=== PATIENT | female | born 2000 | race Two or more races ===

== ENCOUNTER 2023-09-12 23:36 | Emergency (ER) | payer SELFPAY ==
[~2023-09-12] VITALS: Ht 160 cm; Wt 65.0 kg
[2023-09-12 23:45] VITALS: BP 118/79; RESP 20; O2SAT 94
[2023-09-12 23:47] VITALS: PULSE 100
[2023-09-13 00:25] LABS: Urine Bacteria FEW /hpf (None Seen); Urine Blood Negative /uL (Negative); Urine Clarity Clear (Clear); Urine Protein, UAD Negative (Negative); Urine Specific Gravity 1.002 (1.001-1.035); Urine Urobilinogen Normal (Negative); Urine WBC 1 /hpf (0 - 5); Urine pH 6.5 (5.0-8.0)
[2023-09-13 00:35] LABS: Amphetamine Screen, Urine Neg (NEGATIVE); Barbiturate Scree,Urine Neg (NEGATIVE); Benzodiazephine Screen, Urine Neg (NEGATIVE); Cannabinoid Screen, Urine Neg (NEGATIVE); Cocaine Screen, Urine Neg (NEGATIVE); Opiate Scree,Urine Neg (NEGATIVE); Phencyclidine Screen, Urine Neg (NEGATIVE)
[2023-09-13 00:36] LABS: Urine Color Straw (Yellow)
[2023-09-13 00:36] LABS: Basophils # (auto) 0 10 ^3/uL (0-0.2); Basophils % (auto) 0.4 % (0.0-2.0); Eosinophils # (auto) 0 10 ^3/uL (0-0.8); Eosinophils % (auto) 0.5 % (0.0-7.0); Hematocrit 45.3 % (36.0-46.0); Hemoglobin 15.3 g/dL (12.2-16.2); Lymphocytes % (auto) 27.8 % (10.0-50.0); Mean Corpuscular Hemoglobin 29.9 pg (28.0-32.0); Mean Corpuscular Hgb Conc. 33.9 g/dL (32.0-36.0); Mean Corpuscular Volume 88.3 fL (80.0-100.0); Monocytes # (auto) 0.4 10 ^3/uL (0-1.3); Monocytes % (auto) 5.6 % (0.0-12.0); Neutrophils # (auto) 4.6 10 ^3/uL (1.6-8.6); Neutrophils % (auto) 65.7 % (37.0-80.0); Nucleated Red Blood Cells % 0.2 %; Red Blood Cells 5.12 10^6/uL (4.0-5.20); Red Cell Distribution Width 12.3 % (11.8-14.3); White Blood Cell 7.1 10^3/uL (4.4-10.8)
[2023-09-13 00:48] LABS: Alanine Aminotransferase 23 U/L (7-40); Albumin 5.3 g/dL (3.2-4.8); Alkaline Phosphatase 102 U/L (46-116); Anion Gap 12 (5-15); Aspartate Aminotransferase 16 U/L (13-40); Blood Alcohol 196.8 mg/dL (<10); Calcium 9.5 mg/dL (8.7-10.4); Carbon Dioxide 21 mmol/L (20-30); Chloride 110 mmol/L (98-107); Glucose 107 mg/dL (74-106); Lipase 38 U/L (12-53); Potassium 3.4 mmol/L (3.5-5.1); Sodium 143 mmol/L (136-145)
[2023-09-13 00:49] LABS: Bilirubin, Total 0.4 mg/dL (0.2-1.0); Total Protein 8.5 g/dL (5.7-8.2)
[2023-09-13 01:21] LABS: BUN/Creatinine Ratio 6.8 (10.0-20.0); Blood Urea Nitrogen < 5 mg/dL (9-23)
== END 2023-09-13 03:08 | disposition left against medical advice (07) ==
LOC: ER 23:36 → EDBD 23:36 → ER 09-13 03:00
DX: R55 Syncope and collapse (principal); R10.2 Pelvic and perineal pain; R11.0 Nausea; Z53.21 Procedure and treatment not carried out due to patient leaving prior to being seen by health care provider; Z79.899 Other long term (current) drug therapy
CPT/HCPCS: 36415; 80053; 80307; 80320; 81001; 81025; 83690; 84484; 84702; 85025; 93005